=== PATIENT | male | born 2000 | race Caucasian/White ===

== ENCOUNTER 2024-07-20 10:24 | Day surgery (SDC) | payer BC, SELFPAY ==
--- NOTE | 2024-07-18 14:49 | HO.ANESPROP2 ---
Documented by User: Tena Mann NP 07/18/24 14:49 HPI - Anesthesia Eval Consult details Narrative: 24yo M for Left Lateral Rectus Eye Muscle Recession,Left Medial Rectus Resection [facility] Past Medical History Medical History Nasal congestion Strabismus Glaucoma ADHD (attention deficit hyperactivity disorder) Depression Obesity Vitamin D deficiency Social History Social History Are you a primary care provider to a significant other at home: No Do you presently have visiting nurse or other home services: No Patient Tobacco Use Status: Never used Tobacco Use of substances other than those prescribed or required for medical reasons: No Advance Directives: No Advance Directives Information Provided: Yes Advance Directives on File: No Recently lost weight without trying: No Nutrition Risks: No Nutritional Risk Meds Allergies Allergy/AdvReac Type Severity Reaction Status Date / Time mite-Dermatophagoides Allergy Unknown Verified 07/20/24 11:05 farinae, erika [dust mite - [place]] mold Allergy Unknown Verified 07/20/24 11:05 Home Medications ?Medication ?Instructions ?Recorded ?Confirmed ?Last Taken ?Type dorzolamide 22.3 mg-timolol 6.8 1 drp ophthalmic (eye) BID 07/14/24 07/14/24 07/20/24 History mg/mL eye drops fluticasone propionate 50 1 spray intranasal DAILY 07/14/24 07/14/24 Unknown History mcg/actuation nasal spray,suspension melatonin 10 mg capsule 10 mg PO BEDTIME 07/14/24 07/14/24 Unknown History Assessment and Plan Assessment Anesthesia Assessment: Chart Reviewed Documented by User: Mervat Ward MD 07/20/24 12:32 [facility] Past Medical History Medical History Nasal congestion Strabismus Glaucoma ADHD (attention deficit hyperactivity disorder) Depression Obesity Vitamin D deficiency Social History Social History Are you a primary care provider to a significant other at home: No Do you presently have visiting nurse or other home services: No Patient Tobacco Use Status: Never used Tobacco Use of substances other than those prescribed or required for medical reasons: No Advance Directives: No Advance Directives Information Provided: Yes Advance Directives on File: No Recently lost weight without trying: No Nutrition Risks: No Nutritional Risk Meds Allergies Allergy/AdvReac Type Severity Reaction Status Date / Time mite-Dermatophagoides Allergy Unknown Verified 07/20/24 11:05 farinae, erika [dust mite - [place]] mold Allergy Unknown Verified 07/20/24 11:05 Home Medications ?Medication ?Instructions ?Recorded ?Confirmed ?Last Taken ?Type dorzolamide 22.3 mg-timolol 6.8 1 drp ophthalmic (eye) BID 07/14/24 07/14/24 07/20/24 History mg/mL eye drops fluticasone propionate 50 1 spray intranasal DAILY 07/14/24 07/14/24 Unknown History mcg/actuation nasal spray,suspension melatonin 10 mg capsule 10 mg PO BEDTIME 07/14/24 07/14/24 Unknown History Exam Airway Mallampati Class: II TM Dist: >3cm Neck ROM: Full Loose/Missing/Broken Teeth: No Heart: RRR Lungs: CTA Assessment and Plan Final Anesthetic Review NPO: Yes ASA Class: II Final Preanesthetic Review: Meds/Allgs Chart Reviewed, Consent Obtained/Reviewed and Anes Risks/Benef Reviewed Patient Risk: Low Procedure Risk: Low Anesthetic Plan Anesthetic Plan: GA Disposition: Standard PACU
[2024-07-20] VITALS (7 sets, daily range): BP systolic 120–141; BP diastolic 67–94; PULSE 65–82; RESP 16; TEMP 36.5; O2SAT 97–100; BMI 27.6
[2024-07-20] MEDS: Lactated Ringers 1,000 ML 100 ML IVCONT (11:36)
--- NOTE | 2024-07-20 13:35 | P.OPHTHAL_ITS ---
Ophthalmology Operative Note Date of Service: 07/20/24 Narrative: Diagnosis left sensory esotropia. Postoperative diagnosis same. Procedures 1. Recession of left medial rectus 8 mm 2. Resection of left lateral rectus [address] Ridley. Anesthesia general. Complications none. The patient was brought to the operative room placed under general anesthesia. The left eye was prepped and draped in the usual sterile ophthalmic fashion. A lid speculum was placed in the eye and an incision was made at bare sclera in the inferonasal fornix. The medial rectus was hooked and secured with a double-armed Vicryl suture. It was disinserted from the globe and reattached to a position 8 mm behind the original insertion. Conjunctiva was closed with interrupted Vicryl sutures. An incision was then made down to bare sclera in the inferotemporal fornix. The lateral rectus was hooked and dissected free of its overlying fascial attachments. It was grasped with a muscle clamp and a 10 mm resection was marked off with cautery. The resection point was secured with a double-arme d Vicryl suture and the distal muscle resected. The resection point was then drawn forward to the original insertion. Conjunctiva was closed with interrupted Vicryl sutures. The patient was then awoken from general anesthesia and discharged to postoperative recovery in good condition.
[2024-07-20] MEDS: Ondansetron ODT 4 MG TAB.RAPDIS TRANSLINGU (14:38)
--- NOTE | 2024-07-20 15:05 | PC.NURSE ---
PATIENT GIVEN ZOFRAN 4 MG SL PRIOR TO DC FOR COMPLAINT OF NAUSEA. PATIENT STATED NO NAUSEA AT TIME OF DISCHARGE. MOM AT SIDE.
== END 2024-07-20 15:07 | disposition home or self-care (01) ==
PROVIDERS: Visit Provider Ophthalmology
PROC: (CPT 67312; principal; 2024-07-20 12:10)
DX: H50.042 Monocular esotropia with other noncomitancies, left eye (principal); H50.9 Unspecified strabismus; H53.002 Unspecified amblyopia, left eye; H40.9 Unspecified glaucoma; E55.9 Vitamin D deficiency, unspecified; F90.2 Attention-deficit hyperactivity disorder, combined type; E66.9 Obesity, unspecified; F32.A Depression, unspecified; R09.81 Nasal congestion; Z79.51 Long term (current) use of inhaled steroids; Z79.899 Other long term (current) drug therapy
CPT/HCPCS: 67312; J0131; J1100; J1596; J1885; J2003; J2250; J2405; J2704; J3010